=== PATIENT | male | born 1980 | race Caucasian/White ===

== ENCOUNTER → 2016-10-16 | Outpatient (REF) | LOC: WSOH 10:10 | DX: Z02.4 Encounter for examination for driving license (principal) ==

== ENCOUNTER → 2017-01-30 | Outpatient (REF) | LOC: WSOH 11:29 | DX: Z02.4 Encounter for examination for driving license (principal) ==

== ENCOUNTER 2020-01-16 06:28 | Emergency (ER) | payer OTHER ==
[~2020-01-16] VITALS: Ht 182.9 cm; Wt 145.5 kg
[2020-01-16 06:41] VITALS: BP 133/105; TEMP 98.1
[2020-01-16 08:02] LABS: BASO % 0.5 % (0.0-2.0); EOS # 0.2 (0.0-0.7); EOS % 2.6 % (0-4.0); GRAN # 3.6 (1.4-6.5); GRAN % 57.6 % (42.2-75.2); HEMATOCRIT 44.2 % (42.0-52.0); HEMOGLOBIN 15.1 g/dl (13.5-18.0); LYMPH # 2.1 (1.2-3.4); LYMPH % 33.2 % (20.0-51.0); MEAN CELL VOLUME 84 fl (80.0-100.0); MEAN CORPUSCULAR HEMOGLOBIN 29 pg (27.0-31.0); MEAN CORPUSCULAR HGB CONC 34 g/dl (33.0-37.0); MEAN PLATELET VOLUME 9.3 fl (7.4-10.4); MONO # 0.4 (0.1-0.6); MONO % 5.9 % (1.7-9.3); PLATELET COUNT 197 K/mm3 (130-400); RED BLOOD COUNT 5.28 M/mm3 (4.20-5.60); REDCELL DISTRIBUTION WIDTH-CV 12.8 % (11.5-14.5)
[2020-01-16 08:14] LABS: ALANINE AMINOTRANSFERASE 28 U/L (4-49); ALBUMIN 4.7 gm/dL (3.5-5.0); ALKALINE PHOSPHATASE 80 U/L (50-136); ANION GAP 10 mmol/L (7-16); AST,SGOT 25 U/L (15-37); BILIRUBIN,TOTAL 0.5 mg/dL (0.0-1.0); BLOOD UREA NITROGEN 16 mg/dL (9-20); CALCIUM 9.2 mg/dL (8.4-10.2); CARBON DIOXIDE 24 mmol/L (22-30); CHLORIDE 103 mmol/L (98-107); CREATININE, serum 0.94 (0.66-1.25); GLUCOSE 102 mg/dL (74-106); SODIUM 137 mmol/L (137-145); TOTAL PROTEIN 8.1 gm/dL (6.4-8.2)
[2020-01-16 08:28] LABS: TROPONIN-I < 0.012 ng/mL (0.000-0.035)
[2020-01-16 10:10] VITALS: PULSE 66
== END 2020-01-16 10:10 | disposition home or self-care (01) ==
LOC: COL.ER 06:28
PROVIDERS: Emergency Medicine
DX: R06.02 Shortness of breath (principal); G47.33 Obstructive sleep apnea (adult) (pediatric); Z99.89 Dependence on other enabling machines and devices